=== PATIENT | female | born 1950 | race Two or more races ===

== ENCOUNTER 2021-12-26 08:32 | Outpatient (CLI) | payer OTHER | END 2021-12-26 08:45 | disposition home or self-care (01) | LOC: TOM 08:32 | PROVIDERS: ATTEND Internal Medicine | DX: D50.9 Iron deficiency anemia, unspecified (principal); C78.89 Secondary malignant neoplasm of other digestive organs; C77.8 Secondary and unspecified malignant neoplasm of lymph nodes of multiple regions ==